=== PATIENT | male | born 1950 ===

== ENCOUNTER 2023-11-19 11:01 | Emergency (ER) | payer MEDICARE ==
[2023-11-19] MEDS: Meclizine 25 MG Tab PO ONE (11:48)
[2023-11-19 11:49] VITALS: BP 137/97; PULSE 63
[2023-11-19 11:49] LABS: BASOPHILS ABSOLUTE AUTO 0.07 K/uL (0.00-0.20); BASOPHILS PERCENT AUTO 0.9 % (0.0-2.0); EOSINOPHILS ABSOLUTE AUTO 0.23 K/uL (0.00-0.50); EOSINOPHILS PERCENT AUTO 2.9 % (0.0-5.0); HEMATOCRIT 49.2 % (39.0-49.0); HEMOGLOBIN 16.8 g/dL (13.1-16.8); LYMPHOCYTES PERCENT AUTO 21.7 % (10.0-50.0); MEAN CORPUSCULAR HEMOGLOBIN 29.9 pg (28.2-33.3); MEAN CORPUSCULAR HGB CONC 34.1 g/dL (31.7-36.0); MEAN CORPUSCULAR VOLUME 87.5 fL (84.0-98.0); MONOCYTES ABSOLUTE AUTO 0.87 K/uL (0.00-1.00); MONOCYTES PERCENT AUTO 11.1 % (2.0-14.0); NEUTROPHILS ABSOLUTE AUTO 4.98 K/uL (1.40-7.00); NEUTROPHILS PERCENT AUTO 63.4 % (45.0-80.0); PLATELET COUNT,PLT 178 K/uL (150-350); RED BLOOD CELL COUNT 5.62 M/uL (4.33-5.41); RED CELL DISTRIBUTION WIDTH 14.1 % (11.2-14.1); WHITE BLOOD CELL COUNT,WBC 7.9 K/uL (4.0-10.2)
[2023-11-19 12:11] LABS: ALANINE AMINOTRANSFERASE,ALT 38 U/L (12-78); ALBUMIN 3.8 g/dL (3.4-5.0); ALKALINE PHOSPHATASE 74 IU/L (46-116); ANION GAP 8.1 meq/L (7-15); ASPARTATE AMNIOTRANSFERASE,AST 21 U/L (15-37); BILIRUBIN TOTAL 0.7 mg/dL (0.2-1.0); BLOOD UREA NITROGEN,BUN 26 mg/dL (7-18); CALCIUM 9.3 mg/dL (8.5-10.1); CARBON DIOXIDE,CO2 28.9 mmol/L (21.0-32.0); CHLORIDE,CL 104 mmol/L (98-107); CREATININE 1.25 mg/dL (0.51-1.17); ESTIMATED GFR 61 mL/min (>=60); GLUCOSE RANDOM 108 mg/dL (70-99); MAGNESIUM 1.8 mg/dL (1.8-2.4); PROTEIN TOTAL,TP 6.7 g/dL (6.4-8.2); SODIUM,NA 141 mmol/L (136-145)
[2023-11-19 12:11] LABS: CORONAVIRUS COVID-19 NAA NEGATIVE (NEGATIVE); INFLUENZA A NAA NEGATIVE (NEGATIVE); INFLUENZA B NAA NEGATIVE (NEGATIVE); RESPIRATORY SYNCYTIAL VIR NAA NEGATIVE (NEGATIVE)
== END 2023-11-19 12:38 | disposition home or self-care (01) ==
LOC: LL.ED 11:01
DX: R42 Dizziness and giddiness (principal); E78.00 Pure hypercholesterolemia, unspecified; I10 Essential (primary) hypertension; Z88.8 Allergy status to other drugs, medicaments and biological substances; Z79.899 Other long term (current) drug therapy
CPT/HCPCS: 0241U; 36415; 80053; 83605; 83735; 84484; 85025; 93005; 99284; A9270-GY